=== PATIENT | female | born 1965 | race Caucasian/White ===

== ENCOUNTER → 2017-12-19 | Emergency (ER) | payer OTHER ==
[~2017-12-19] VITALS: Ht 152.4 cm; Wt 99.8 kg
[~2017-12-19] MED LIST: KETOROLAC 30 MG/ML VIAL IVP ONE; fentaNYL INJECTION 100 MCG/2 ML AMP IVP ONE
[2017-12-19 14:35] LABS: BASOPHILS % (AUTO) 1 % (0-10); EOSINOPHILS # (AUTO) 0.1 10^3/uL (0.0-0.3); EOSINOPHILS % (AUTO) 2 % (0-10); HEMATOCRIT 36 % (35-52); HEMOGLOBIN 11.7 G/DL (11.5-16.0); LYMPHOCYTES # (AUTO) 2.2 X 10^3 (1.0-4.0); LYMPHOCYTES % (AUTO) 37 % (12-44); MEAN CORPUSCULAR HEMOGLOBIN 28 PG (25-34); MEAN CORPUSCULAR HGB CONC 33 G/DL (32-36); MEAN CORPUSCULAR VOLUME 86 FL (80-99); MEAN PLATELET VOLUME 10.6 FL (7.4-10.4); MONOCYTES # (AUTO) 0.4 X 10^3 (0.0-1.0); MONOCYTES % (AUTO) 6 % (0-12); NEUTROPHILS # (AUTO) 3.2 X 10^3 (1.8-7.8); NEUTROPHILS % (AUTO) 54 % (42-75); PLATELET COUNT 313 10^3/uL (130-400); RED BLOOD COUNT 4.17 10^6/uL (4.35-5.85); RED CELL DISTRIBUTION WIDTH 17.9 % (10.0-14.5)
[2017-12-19 14:54] LABS: ALANINE AMINOTRANSFERASE 14 U/L (0-55); ALBUMIN 3.7 GM/DL (3.2-4.5); ALKALINE PHOSPHATASE 134 U/L (40-136); BILIRUBIN,TOTAL 0.3 MG/DL (0.1-1.0); BUN/CREATININE RATIO 28; CALCIUM 8.9 MG/DL (8.5-10.1); CARBON DIOXIDE 17 MMOL/L (21-32); CHLORIDE 106 MMOL/L (98-107); CREATININE SERUM 0.72 MG/DL (0.60-1.30); GFR ESTIMATED > 60; GLUCOSE 67 MG/DL (70-105); MAGNESIUM 2.1 MG/DL (1.8-2.4); SODIUM 138 MMOL/L (135-145); TOTAL PROTEIN 6.5 GM/DL (6.4-8.2)
[2017-12-19 15:14] LABS: TSH (THYROID ANALYZER) 1.45 UIU/ML (0.35-4.94)
--- NOTE | 2017-12-19 15:55 | Diagnostic Imaging Report ---
INDICATION: Syncope. Frontal chest obtained at 3:28 p.m. FINDINGS: Heart and mediastinal silhouette are normal in appearance. The lungs are clear. There is no pneumothorax or pleural fluid. IMPRESSION: Negative chest. Dictated by: Dictated on workstation # [id number]
--- NOTE | 2017-12-19 16:00 | Diagnostic Imaging Report ---
INDICATION: Syncope with head and neck pain. CT BRAIN FINDINGS: Noncontrast brain CT is performed. There are no extra-axial fluid collections. No intracranial hemorrhage. No intracranial mass or mass effect. No midline shift. The ventricles are normal in size and position. There is a left parietal scalp hematoma. Calvarial windows show no underlying fracture. CT CERVICAL SPINE FINDINGS: Axial slices are obtained with sagittal coronal reconstructions without contrast. There was no evidence of cervical spine fracture. There is no subluxation or malalignment. There is no acute appearing bony abnormality. IMPRESSION: CT brain shows no acute intracranial abnormality or calvarial fracture. There is left parietal scalp hematoma. CT cervical spine shows no acute bony abnormality. Dictated by: Dictated on workstation # [id number]
--- NOTE | 2017-12-19 16:15 | ED Fall/Injury ---
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 The fall was not witnessed but her daughter was working in the building and arrived to her aid shortly after. There reportedly was brief loss of consciousness. Because of the fall is uncertain. Patient has swelling or hematoma on the left occipital scalp and complains of tenderness in that area. She arrives in c-collar. She is disoriented but alert on arrival. Patient's daughter reports that she had suspected seizure activity 2 years ago at [facility]. She otherwise has no history of syncope or seizure. Patient has pain on the back of the head and some aching in the neck. She also complains of some lower back pain. She reports no chest pain or shortness of breath. Patient lives in [place], [place], and is in town for a cleaning job. Patient's daughter also gave a history of hypoglycemia. Fingerstick blood sugar for EMS was 87. Allergies and Home Medications Allergies Coded Allergies: No Known Drug Allergies (Unverified , 12/19/17) Patient Home Medication List Home Medication List Reviewed: Yes Review of Systems Review of Systems Constitutional: no symptoms reported Eyes: No Symptoms Reported Ears, Nose, Mouth, Throat: no symptoms reported Respiratory: no symptoms reported Cardiovascular: see HPI (Questionable syncope) Gastrointestinal: no symptoms reported Genitourinary: no symptoms reported : No Musculoskeletal: see HPI Skin: no symptoms reported Psychiatric/Neurological: See HPI Past Emsnerh-Njnsuy-Azwtdg Hx Past Med/Social Hx: Reviewed Nursing Past Med/Soc Hx Patient Social History Alcohol Use: Denies Use Recreational Drug Use: No Past Medical History Surgeries: No (None reported) Respiratory: No Cardiac: No Neurological: Yes Seizure Disorder (Possible seizure activity in 2016) : No Reproductive Disorders: No Genitourinary: No Gastrointestinal: No Musculoskeletal: No Endocrine: Yes (Hypoglycemia) Lupus HEENT: No Cancer: No Psychosocial: No Integumentary: No Physical Exam Vital Signs Vital Signs - First Documented 12/19/17 14:16 Temp 98.4 Pulse 75 Resp 16 B/P (MAP) 143/81 (101) Pulse Ox 97 O2 Delivery Room Air Capillary Refill : Height, Weight, BMI Height: '" Weight: lbs. oz. kg; BMI Method: General Appearance: WD/WN, no apparent distress HEENT: PERRL/EOMI, pharynx normal, other (No dental injury. 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, no motor/sensory deficits, alert, normal mood/affect, other (Patient slightly disoriented with improvement in mental status as time progresses) Skin: normal color, warm/dry [place] Coma Score Best Eye Response: (4) Open Spontaneously Best Verbal Response: (5) Oriented Best Motor Response: (6) Obeys Commands [place] Total: 15 Progress/Results/Core Measures Results/Orders Lab Results Laboratory Tests Test 12/19/17 14:15 12/19/17 15:59 Range/Units White Blood Count 6.0 4.3-11.0 10^3/uL Red Blood Count 4.17 L 4.35-5.85 10^6/uL Hemoglobin 11.7 11.5-16.0 G/DL Hematocrit 36 35-52 % Mean Corpuscular Volume 86 80-99 FL Mean Corpuscular Hemoglobin 28 25-34 PG Mean Corpuscular Hemoglobin Concent 33 32-36 G/DL Red Cell Distribution Width 17.9 H 10.0-14.5 % Platelet Count 313 130-400 10^3/uL Mean Platelet Volume 10.6 H 7.4-10.4 FL Neutrophils (%) (Auto) 54 42-75 % Lymphocytes (%) (Auto) 37 12-44 % Monocytes (%) (Auto) 6 0-12 % Eosinophils (%) (Auto) 2 0-10 % Basophils (%) (Auto) 1 0-10 % Neutrophils # (Auto) 3.2 1.8-7.8 X 10^3 Lymphocytes # (Auto) 2.2 1.0-4.0 X 10^3 Monocytes # (Auto) 0.4 0.0-1.0 X 10^3 Eosinophils # (Auto) 0.1 0.0-0.3 10^3/uL Basophils # (Auto) 0.0 0.0-0.1 10^3/uL Sodium Level 138 135-145 MMOL/L Potassium Level 4.0 3.6-5.0 MMOL/L Chloride Level 106 98-107 MMOL/L Carbon Dioxide Level 17 L 21-32 MMOL/L Anion Gap 15 H 5-14 MMOL/L Blood Urea Nitrogen 20 H 7-18 MG/DL Creatinine 0.72 0.60-1.30 MG/DL Estimat Glomerular Filtration Rate > 60 BUN/Creatinine Ratio 28 Glucose Level 67 L 70-105 MG/DL Calcium Level 8.9 8.5-10.1 MG/DL Corrected Calcium 9.1 8.5-10.1 MG/DL Magnesium Level 2.1 1.8-2.4 MG/DL Total Bilirubin 0.3 0.1-1.0 MG/DL Aspartate Amino Transf (AST/SGOT) 20 5-34 U/L Alanine Aminotransferase (ALT/SGPT) 14 0-55 U/L Alkaline Phosphatase 134 40-136 U/L Troponin I < 0.30 <0.30 NG/ML Total Protein 6.5 6.4-8.2 GM/DL Albumin 3.7 3.2-4.5 GM/DL TSH [place] Testing 1.45 0.35-4.94 UIU/ML Serum Alcohol < 10 <10 MG/DL Glucometer 92 70-110 MG/DL My Orders Orders - GREGORIO MUÑOZ MD Alcohol (12/19/17 14:25) Cbc With Automated Diff (12/19/17 14:25) Comprehensive Metabolic Panel (12/19/17 14:25) Drug Screen Stat (Urine) (12/19/17 14:25) Magnesium (12/19/17 14:25) Thyroid Analyzer (12/19/17 14:25) Troponin I (12/19/17 14:25) Ua Culture If Indicated (12/19/17 14:25) Saline Lock/Iv-Start (12/19/17 14:25) Ekg Tracing (12/19/17 14:25) Monitor-Rhythm Ecg Trace Only (12/19/17 14:25) Chest 1 View, Ap/Pa Only (12/19/17 14:25) Ct Head/Cervical Spine Wo (12/19/17 14:25) Ct Lumbar Spine Wo (12/19/17 14:25) Fentanyl Injection (Sublimaze Injection (12/19/17 15:15) Ketorolac Injection (Toradol Injection) (12/19/17 16:15) Medications Given in ED Vital Signs/I&O 12/19/17 12/19/17 14:16 17:41 Temp 98.4 98.6 Pulse 75 78 Resp 16 16 B/P (MAP) 143/81 (101) 136/80 Pulse Ox 97 98 O2 Delivery Room Air Room Air Progress Progress Note : Progress Note Workup was unremarkable. CT imaging demonstrated no acute abnormalities. The lumbar compression fracture was felt to be old in nature and patient does describe having chronic pain in the area. Patient's cognitive status was improving. She received Toradol and fentanyl for pain. A work note was provided. Patient was notified by phone message after discharge not to take tramadol as a further review of her medication history Notes she filled tramadol last February. She was informed tramadol can lower seizure threshold. Initial ECG Impression Date: Dec 19, 2017 Initial ECG Impression Time: 14:20 Initial ECG Rate: 75 Initial ECG Rhythm: Normal Sinus Initial ECG Intervals: Normal Initial ECG Impression: Normal Comment Normal sinus rhythm with no ST elevation or depression. No abnormal intervals or axis deviation. Diagnostic Imaging Diagonstic Imaging: CT Plain Films/CT/US/NM/MRI: c-spine, head Comments CT head and C-spine viewed by me and report reviewed. Discussed with radiologist. See report below: NAME: RICHARD FUENTES [facility] REC#: [id number] PT STATUS: REG ER : 1965 PHYSICIAN: GREGORIO MUÑOZ MD ADMIT DATE: 12/19/17/ER Draft Date of Exam:12/19/17 CT HEAD/CERVICAL SPINE WO INDICATION: Syncope with head and neck pain. CT BRAIN FINDINGS: Noncontrast brain CT is performed. There are no extra-axial fluid collections. No intracranial hemorrhage. No intracranial mass or mass effect. No midline shift. The ventricles are normal in size and position. There is a left parietal scalp hematoma. Calvarial windows show no underlying fracture. CT CERVICAL SPINE FINDINGS: Axial slices are obtained with sagittal coronal reconstructions without contrast. There was no evidence of cervical spine fracture. There is no subluxation or malalignment. There is no acute appearing bony abnormality. IMPRESSION: CT brain shows no acute intracranial abnormality or calvarial fracture. There is left parietal scalp hematoma. CT cervical spine shows no acute bony abnormality. Dictated on workstation # [id number] Dict: 12/19/17 1554 Trans: 12/19/17 1559 [facility] [id number] Interpreted by: CHELSEA BRYANT MD Diagonstic Imaging: Xray Plain Films/CT/US/NM/MRI: chest Comments [facility] [id number] PT STATUS: REG ER : 1965 PHYSICIAN: GREGORIO MUÑOZ MD ADMIT DATE: 12/19/17/ER Draft Date of Exam:12/19/17 CHEST 1 VIEW, AP/PA ONLY INDICATION: Syncope. Frontal chest obtained at 3:28 p.m. FINDINGS: Heart and mediastinal silhouette are normal in appearance. The lungs are clear. There is no pneumothorax or pleural fluid. IMPRESSION: Negative chest. Dictated on workstation # [id number] Dict: 12/19/17 1553 Trans: 12/19/17 [id number] [id number] Interpreted by: CHELSEA BRYANT MD Diagonstic Imaging: CT Plain Films/CT/US/NM/MRI: other (lumbar spine) Comments CT lumbar spine and report reviewed. Discussed with radiologist. See report below: NAME: RICHARD FUENTES [facility] REC#: [id number] PT STATUS: REG ER : 1965 PHYSICIAN: GREGORIO MUÑOZ MD ADMIT DATE: 12/19/17/ER Draft Date of Exam:12/19/17 CT LUMBAR SPINE WO PROCEDURE: CT lumbar spine without contrast. TECHNIQUE: Multiple contiguous axial images were obtained through the lumbar spine without the use of intravenous contrast. Sagittal and coronal reformations were then performed. INDICATION: Back pain. COMPARISON: There are no prior studies available for comparison. FINDINGS: The reconstructed sagittal images show a 30-40% compression deformity of the superior endplate of L4. I suspect this injury is long-standing in nature. However, if clinical concern regarding an acute abnormality in this area persists, then MRI would be recommended for further study. Also, if previous exams are available, they would be helpful for comparison. The other vertebral body heights are generally within normal limits. The intervertebral spaces are fairly well maintained. There is a disc bulge centrally at L3-4. The disc flattens the ventral aspect of the thecal sac but does not produce any significant central stenosis. There is mild narrowing of the neural foramen bilaterally at this level. There is also a disc bulge centrally at the L4-5 level. There is no evidence for spinal stenosis or nerve root encroachment at this level. The remainder of the lumbar spine is unremarkable for spinal stenosis or nerve root encroachment. There is no sign of a paraspinal mass. IMPRESSION: 1. The compression deformity of L4 is most likely long-standing in nature. If further imaging is desired, however, then MRI would be recommended. 2. There is no acute bony abnormality noted otherwise. 3. There is degenerative disc disease at L3-4 and to a lesser degree at L4-5. There is also mild narrowing of the neural foramen bilaterally at L3-4. 4. The remainder of the lumbar spine is unremarkable for a high-grade central stenosis. 5. These results were called to Dr. Muñoz in the ER. Dictated on workstation # [id number] Dict: 12/19/17 1555 Trans: 12/19/17 1613 [id number] Interpreted by: ANDREA BURNHAM MD Departure Impression Primary Impression: Fall on same level Qualified Codes: W18.30XA - Fall on same level, unspecified, initial encounter Additional Impressions: Concussion with loss of consciousness Qualified Codes: S06.0X9A - Concussion with loss of consciousness of unspecified duration, initial encounter Lumbar compression fracture Qualified Codes: S32.040A - Wedge compression fracture of fourth lumbar vertebra, initial encounter for closed fracture Scalp hematoma Qualified Codes: S00.03XA - Contusion of scalp, initial encounter Disposition: 01 HOME, SELF-CARE Condition: Improved Departure-Patient Inst. Decision time for Depature: 16:30 Patient Instructions: Concussion in Adults Add. Discharge Instructions: Drink plenty of clear liquids. For pain you may take ibuprofen up to 600 mg every 6 hours as needed. Add Tylenol (acetaminophen) disease up to 1000 mg every 6 hours as needed for additional pain relief. Keep your activities including mental stimulus to a minimum through the weekend. Gradually increase level of activity as symptoms allow. If any activities cause symptoms of concussion such as confusion, headache, nausea, changes in vision, irritability, etc., please stop that activity and rest. Avoid any activity that would predispose you to head injury such as use of ladders, bike riding, etc. until cleared by doctor. Follow-up with your doctor as soon as possible. Return to care promptly if you have any worsening in condition. You may apply ice to affected areas in 20 minute intervals to help with pain and swelling. Work/School Note: Work Release Form Date Seen in the Emergency Department: Dec 19, 2017 Return to Work: Dec 23, 2017 Other Restrictions Listed Below: Light duty only until released by a physician GREGORIO MUÑOZ MD Dec 19, 2017 16:15
[2017-12-19 17:41] VITALS: BP 136/80
== END | disposition home or self-care (01) ==
LOC: ER 14:18
DX: S06.0X9A Concussion with loss of consciousness of unspecified duration, initial encounter (principal); S32.040A Wedge compression fracture of fourth lumbar vertebra, initial encounter for closed fracture; M54.2 Cervicalgia; W18.30XA Fall on same level, unspecified, initial encounter
CPT/HCPCS: 36415; 70450; 71045; 72125; 72131; 80053; 80320; 82962; 83735; 84443; 84484; 85025; 93005; 93041